=== PATIENT | female | born 1985 | race American Indian/Alaskan Native ===

== ENCOUNTER 2018-07-01 15:27 | Emergency (ER) | payer MEDICAID, SELFPAY ==
[2018-07-01 15:30] VITALS: BP 130/86; PULSE 80; RESP 16; TEMP 36.9; O2SAT 100; BMI 26.9
--- NOTE | 2018-07-01 15:53 | ED.HA ---
HPI - Headache General Chief Complaint: Headache Stated Complaint: rt ear / head pain Time Seen by Provider: 07/01/18 15:53 Source: patient and old records reviewed (marcia by hand from pcp.) Mode of arrival: ambulatory Limitations: no limitations History of Present Illness HPI Narrative: This is a 33-year-old female who comes to the emergency department with complaint of headache for the past 2 and half weeks. Patient states that sort of seemed gradual. She states she was a little bit L. It has been on the right side of her head cut just above her ear. She thought initially she might have an ear infection because she has some pain in the ear. She states also opening and closing her mouth also causes some pain. Patient states she has been taking ibuprofen which has not resolved. It is pretty much constant does not come and go nothing seems to make it worse or better. She has not had a history of migraines. She has had occasional headaches but nothing significant. She has not had any trauma. She does have a family history of glioblastoma in her father. Patient has not had any weakness, dizziness, vision changes, numbness or tingling or other neurologic changes. She has not had any sinus pressure, no recent nasal congestion. She does not have any pain in her neck. Patient's primary care was going to order an outpatient CT but because it would take too long they told her to come to the ER. Patient presents with an outpatient rx for Head CT. Related Data Home Medications Medication Instructions Recorded Confirmed Cinnamon 1 cap PO DAILY 07/01/18 07/01/18 Probiotic 1 cap PO DAILY 07/01/18 07/01/18 apple cider vinegar 1 cap PO DAILY 07/01/18 07/01/18 ibuprofen 600 mg PO PRN PRN 07/01/18 07/01/18 sertraline 200 mg PO DAILY 07/01/18 07/01/18 Previous Rx's Medication Instructions Recorded brktvnzjlz-ievzuhfynwovm-cbyy 1 cap PO Q4H PRN #10 cap 07/01/18 [Fioricet] Allergies Allergy/AdvReac Type Severity Reaction Status Date / Time No Known Drug Allergies Allergy Verified 07/01/18 15:30 Review of Systems Review of Systems ROS Unobtainable: All systems reviewed & are unremarkable except as noted in HPI and below Constitutional Denies chills, Denies fatigue, Denies fever(s), Reports headache(s), Denies lethargy and Denies weakness Eyes Denies blurry vision and Denies change in vision ENT Ears, Nose, Mouth, and Throat: Reports as per HPI, Reports otalgia (right ear), Denies facial pain, Reports headache(s), Denies hoarseness, Denies nasal congestion, Denies neck pain, Denies disequilibrium, Denies tinnitus, Denies sinus pain, Denies sinus pressure, Denies sore throat and Denies throat swelling Musculoskeletal Denies neck pain Neurologic Reports headache(s), Denies disequilibrium and Denies weakness Endocrine Denies fatigue Allergic/Immunologic Denies throat swelling PFSH Social History Smoking Status: Current every day smoker Family History Father No problems noted. Social History Smoking Status: Current every day smoker substance use type: former substance user Exam Narrative Exam Narrative: GEN: well nourished, well appearing female, alert and oriented x 3, patient appears to be in in mild distress. HEENT: Atraumatic, pupils are equal round reactive to light, extraocular movements are intact, nares are clear, TMs are clear with no fluid, there is no conjunctival pallor. Throat is clear without any exudates, erythema, tonsillar enlargement or uvular deviation, patient has some pain with opening and closing of her drop but no click or pain with palpation over the TMJ. Patient does not have any facial swelling, no cervical lymphadenopathy. HEART: Regular rate and rhythm without murmur, clicks, rubs. LUNGS:Lungs clear to auscultation, no wheezes, rales, crackles, chest moves symmetrically ABD:bowel sounds normal, soft, non-tender, no guarding, rebound, rigidity, no masses noted, no hepatosplenomegaly MSCL: Non-tender, no muscle atrophy, muscles strength 5/5 upper and lower extremities, full range of motion, normal gait NEURO:CN 2-12 intact, sensation normal. Initial Vital Signs Initial Vital Signs: Vital Signs Temperature 98.5 F 07/01/18 15:30 Pulse Rate 80 07/01/18 15:30 Respiratory Rate 16 07/01/18 15:30 Blood Pressure 130/86 07/01/18 15:30 Pulse Oximetry 100 07/01/18 15:30 Course Orders Ordered: ED Orders 07/01/18 16:04 CT head/brain wo/w con Stat 07/01/18 16:45 Basic Metabolic Panel Stat Complete Blood Count AUTO DIFF Stat Vital Signs - 8 hr 07/01/18 15:30 07/01/18 18:24 Temperature 98.5 F Pulse Rate 80 69 Respiratory Rate 16 15 Blood Pressure 130/86 Blood Pressure [Left Arm] 121/77 Pulse Oximetry 100 98 MDM - Headache Lab Data Attestation: I reviewed the patient's lab results. Result diagrams: 07/01/18 16:45 07/01/18 16:45 Lab Results 07/01/18 07/01/18 Range/Units 16:45 16:45 WBC 8.8 (4.5-11.0) X10^3/uL RBC 4.10 (4.0-5.2) X10^6/uL Hgb 12.8 (12.0-16.0) g/dL Hct 37.6 (36-46) % MCV 91.6 (80-100) fL MCH 31.2 (26-34) PG MCHC 34.0 (30-36) % RDW 12.2 (11.6-14.8) % Plt Count 255 (150-400) X10^3/uL Neut % (Auto) 61.7 (50-75) % Lymph % (Auto) 28.0 (25-40) % [place] % (Auto) 8.3 (3-14) % Eos % (Auto) 0.9 L (2-4) % Baso % (Auto) 1.1 (0-2) % Neut # (Auto) 5400 (5222-6435) /uL Lymph # (Auto) 2500 (3023-0554) /uL [place] # (Auto) 700 (0-900) /uL Eos # (Auto) 100 (0-450) /uL Baso # (Auto) 100 (0-100) /uL Sodium 138 (137-145) mmol/L Potassium 4.1 (3.4-5.1) mmol/L Chloride 104 (98-107) mmol/L Carbon Dioxide 26 (22-32) mmol/L BUN 11 (7-17) mg/dL Creatinine 0.70 (0.52-1.04) mg/dL Estimated GFR > 60.0 (>60) mL/min BUN/Creatinine Ratio 15.7 (6-22) Glucose 80 (70-100) mg/dL Calcium 9.5 (8.4-10.2) mg/dL Point of Care Testing Test Results Negative Imaging Data head CT with and without: Radiologist's impression: Carolina Ibrahim DO Find Patient Imaging Anette Colon 33 F 1985 ACTIVITY DATE EXAM STATUS AUTHOR 07/01/18 16:04 [place] [address] CT Scan Report Signed Patient: Ashely Colon#: [id number] : 1985Acct:[id number] Age/Sex: 33 / FDate of Service: 07/01/18 Loc: ED Accession Number: [id number] Procedure: CT head/brain wo/w con Ordering Provider: Carolina Ibrahim D.O. PROCEDURE: CT HEAD/BRAIN WO/W CON INDICATIONS: headache x 2-3 weeks, right side, sent by pcp TECHNIQUE: 4.5 mm thick angled axial sections acquired from the foramen magnum to the vertex before and after the administration of intravenous contrast, with coronal and sagittal reformats. For radiation dose reduction, the following was used: automated exposure control, adjustment of mA and/or kV according to patient size. COMPARISON: None. FINDINGS: Image quality: Excellent. CSF Spaces: Basal cisterns are patent. No extra-axial fluid collections. Ventricles are normal in size and shape. Brain: No midline shift. No intracranial bleeds or masses. No abnormal intracranial enhancement. Cedeno-white interface appears normal. Skull and face: Calvarium and visualized facial bones appear intact, without suspicious lesions. Sinuses: Visualized sinuses and mastoids are clear. IMPRESSION: Normal head CT with and without contrast. Dictated by: Alisa Dan M.D. on 07/01/2018 at 18:03 Approved by: Alisa Dan M.D. on 07/01/2018 at 18:05 [facility] Narrative Medical decision making narrative: Patient's primary care physician would like a head CT with and without contrast. She has a family history of glioblastoma, her symptoms are not strictly specific with any other cause so does seem appropriate and she does not have a history of migraines. Head CT is negative, lab work does not show any major changes. Urine is negative. Discussed with patient offered Fioricet to assist with headaches and she can continue NSAIDs as needed. She did have some discomfort with movement of her jaw although not at all times so we did discuss possibly TMJ as a cause as well. Discharge Plan Departure Patient Disposition: Home Clinical Impression: Headache Instructions: DI for Headache Activity Restrictions/Additional Instructions: Follow up with your primary care physician in the next week. Discussed the possibility of TMJ with your physician, they also discussed follow-up/referral for Neurology which may be appropriate. You may continue ibuprofen as needed for headache. You may take medication as prescribed for headache. Return to the ER for fevers greater than 100.4 F, new vision changes, sudden rapid worsening of her headaches, new weakness, numbness, difficulty with speech or movement, persistent vomiting, any chest pain, shortness of breath or other new or concerning symptoms. Prescriptions: New eljckzdfow-wmxtlorvommsa-manh [Fioricet] 50-300-40 mg capsule 1 cap PO Q4H PRN (Reason: pain) Qty: 10 RF: 0 No Action sertraline 100 mg Tablet 200 mg PO DAILY RF: 0 ibuprofen 600 mg Tablet 600 mg PO PRN PRN (Reason: pain) RF: 0 Cinnamon 1 cap PO DAILY RF: 0 Probiotic 1 cap PO DAILY RF: 0 apple cider vinegar 1 cap PO DAILY RF: 0 Referrals: Dvae Frederick MD [Primary Care Provider] -
--- NOTE | 2018-07-01 16:04 | DI.CT.S_ITS ---
PROCEDURE: CT HEAD/BRAIN WO/W CON INDICATIONS: headache x 2-3 weeks, right side, sent by pcp TECHNIQUE: 4.5 mm thick angled axial sections acquired from the foramen magnum to the vertex before and after the administration of intravenous contrast, with coronal and sagittal reformats. For radiation dose reduction, the following was used: automated exposure control, adjustment of mA and/or kV according to patient size. COMPARISON: None. FINDINGS: Image quality: Excellent. CSF Spaces: Basal cisterns are patent. No extra-axial fluid collections. Ventricles are normal in size and shape. Brain: No midline shift. No intracranial bleeds or masses. No abnormal intracranial enhancement. Cedeno-white interface appears normal. Skull and face: Calvarium and visualized facial bones appear intact, without suspicious lesions. Sinuses: Visualized sinuses and mastoids are clear. IMPRESSION: Normal head CT with and without contrast. Dictated by: Alisa Dan M.D. on 07/01/2018 at 18:03 Approved by: Alisa Dan M.D. on 07/01/2018 at 18:05
--- NOTE | 2018-07-01 16:21 | ED_ITS ---
HPI - Headache General Chief Complaint: Headache Stated Complaint: rt ear / head pain Time Seen by Provider: 07/01/18 15:53 Source: patient and old records reviewed (marcia by hand from pcp.) Mode of arrival: ambulatory Limitations: no limitations History of Present Illness HPI Narrative: This is a 33-year-old female who comes to the emergency department with complaint of headache for the past 2 and half weeks. Patient states that sort of seemed gradual. She states she was a little bit L. It has been on the right side of her head cut just above her ear. She thought initially she might have an ear infection because she has some pain in the ear. She states also opening and closing her mouth also causes some pain. Patient states she has been taking ibuprofen which has not resolved. It is pretty much constant does not come and go nothing seems to make it worse or better. She has not had a history of migraines. She has had occasional headaches but nothing significant. She has not had any trauma. She does have a family history of glioblastoma in her father. Patient has not had any weakness, dizziness, vision changes, numbness or tingling or other neurologic changes. She has not had any sinus pressure, no recent nasal congestion. She does not have any pain in her neck. Patient's primary care was going to order an outpatient CT but because it would take too long they told her to come to the ER. Patient presents with an outpatient rx for Head CT. Related Data Home Medications Medication Instructions Recorded Confirmed Cinnamon 1 cap PO DAILY 07/01/18 07/01/18 Probiotic 1 cap PO DAILY 07/01/18 07/01/18 apple cider vinegar 1 cap PO DAILY 07/01/18 07/01/18 ibuprofen 600 mg PO PRN PRN 07/01/18 07/01/18 sertraline 200 mg PO DAILY 07/01/18 07/01/18 Previous Rx's Medication Instructions Recorded qkdmbjgjws-hkdcatttpjprx-yila 1 cap PO Q4H PRN #10 cap 07/01/18 [Fioricet] Allergies Allergy/AdvReac Type Severity Reaction Status Date / Time No Known Drug Allergies Allergy Verified 07/01/18 15:30 Review of Systems Review of Systems ROS Unobtainable: All systems reviewed & are unremarkable except as noted in HPI and below Constitutional Denies chills, Denies fatigue, Denies fever(s), Reports headache(s), Denies lethargy and Denies weakness Eyes Denies blurry vision and Denies change in vision ENT Ears, Nose, Mouth, and Throat: Reports as per HPI, Reports otalgia (right ear), Denies facial pain, Reports headache(s), Denies hoarseness, Denies nasal congestion, Denies neck pain, Denies disequilibrium, Denies tinnitus, Denies sinus pain, Denies sinus pressure, Denies sore throat and Denies throat swelling Musculoskeletal Denies neck pain Neurologic Reports headache(s), Denies disequilibrium and Denies weakness Endocrine Denies fatigue Allergic/Immunologic Denies throat swelling PFSH Social History Smoking Status: Current every day smoker Family History Father No problems noted. Social History Smoking Status: Current every day smoker substance use type: former substance user Exam Narrative Exam Narrative: GEN: well nourished, well appearing female, alert and oriented x 3, patient appears to be in in mild distress. HEENT: Atraumatic, pupils are equal round reactive to light, extraocular movements are intact, nares are clear, TMs are clear with no fluid, there is no conjunctival pallor. Throat is clear without any exudates, erythema, tonsillar enlargement or uvular deviation, patient has some pain with opening and closing of her drop but no click or pain with palpation over the TMJ. Patient does not have any facial swelling, no cervical lymphadenopathy. HEART: Regular rate and rhythm without murmur, clicks, rubs. LUNGS:Lungs clear to auscultation, no wheezes, rales, crackles, chest moves symmetrically ABD:bowel sounds normal, soft, non-tender, no guarding, rebound, rigidity, no masses noted, no hepatosplenomegaly MSCL: Non-tender, no muscle atrophy, muscles strength 5/5 upper and lower extremities, full range of motion, normal gait NEURO:CN 2-12 intact, sensation normal. Initial Vital Signs Initial Vital Signs: Vital Signs Temperature 98.5 F 07/01/18 15:30 Pulse Rate 80 07/01/18 15:30 Respiratory Rate 16 07/01/18 15:30 Blood Pressure 130/86 07/01/18 15:30 Pulse Oximetry 100 07/01/18 15:30 Course Orders Ordered: ED Orders 07/01/18 16:04 CT head/brain wo/w con Stat 07/01/18 16:45 Basic Metabolic Panel Stat Complete Blood Count AUTO DIFF Stat Vital Signs - 8 hr 07/01/18 15:30 07/01/18 18:24 Temperature 98.5 F Pulse Rate 80 69 Respiratory Rate 16 15 Blood Pressure 130/86 Blood Pressure [Left Arm] 121/77 Pulse Oximetry 100 98 MDM - Headache Lab Data Attestation: I reviewed the patient's lab results. Result diagrams: 07/01/18 16:45 07/01/18 16:45 Lab Results 07/01/18 07/01/18 Range/Units 16:45 16:45 WBC 8.8 (4.5-11.0) X10^3/uL RBC 4.10 (4.0-5.2) X10^6/uL Hgb 12.8 (12.0-16.0) g/dL Hct 37.6 (36-46) % MCV 91.6 (80-100) fL MCH 31.2 (26-34) PG MCHC 34.0 (30-36) % RDW 12.2 (11.6-14.8) % Plt Count 255 (150-400) X10^3/uL Neut % (Auto) 61.7 (50-75) % Lymph % (Auto) 28.0 (25-40) % [place] % (Auto) 8.3 (3-14) % Eos % (Auto) 0.9 L (2-4) % Baso % (Auto) 1.1 (0-2) % Neut # (Auto) 5400 (0385-2179) /uL Lymph # (Auto) 2500 (3553-7738) /uL [place] # (Auto) 700 (0-900) /uL Eos # (Auto) 100 (0-450) /uL Baso # (Auto) 100 (0-100) /uL Sodium 138 (137-145) mmol/L Potassium 4.1 (3.4-5.1) mmol/L Chloride 104 (98-107) mmol/L Carbon Dioxide 26 (22-32) mmol/L BUN 11 (7-17) mg/dL Creatinine 0.70 (0.52-1.04) mg/dL Estimated GFR > 60.0 (>60) mL/min BUN/Creatinine Ratio 15.7 (6-22) Glucose 80 (70-100) mg/dL Calcium 9.5 (8.4-10.2) mg/dL Point of Care Testing Test Results Negative Imaging Data head CT with and without: Radiologist's impression: Carolina Ibrahim DO Find Patient Imaging Anette Colon 33 F 1985 ACTIVITY DATE EXAM STATUS AUTHOR 07/01/18 16:04 [place] [address] CT Scan Report Signed Patient: Ashely Colon#: [id number] : 1985Acct:[id number] Age/Sex: 33 / FDate of Service: 07/01/18 Loc: ED Accession Number: [id number] Procedure: CT head/brain wo/w con Ordering Provider: Carolina Ibrahim D.O. PROCEDURE: CT HEAD/BRAIN WO/W CON INDICATIONS: headache x 2-3 weeks, right side, sent by pcp TECHNIQUE: 4.5 mm thick angled axial sections acquired from the foramen magnum to the vertex before and after the administration of intravenous contrast, with coronal and sagittal reformats. For radiation dose reduction, the following was used: automated exposure control, adjustment of mA and/or kV according to patient size. COMPARISON: None. FINDINGS: Image quality: Excellent. CSF Spaces: Basal cisterns are patent. No extra-axial fluid collections. Ventricles are normal in size and shape. Brain: No midline shift. No intracranial bleeds or masses. No abnormal intracranial enhancement. Cedeno-white interface appears normal. Skull and face: Calvarium and visualized facial bones appear intact, without suspicious lesions. Sinuses: Visualized sinuses and mastoids are clear. IMPRESSION: Normal head CT with and without contrast. Dictated by: Alisa Dan M.D. on 07/01/2018 at 18:03 Approved by: Alisa Dan M.D. on 07/01/2018 at 18:05 [facility] Narrative Medical decision making narrative: Patient's primary care physician would like a head CT with and without contrast. She has a family history of glioblastoma, her symptoms are not strictly specific with any other cause so does seem appropriate and she does not have a history of migraines. Head CT is negative, lab work does not show any major changes. Urine is negative. Discussed with patient offered Fioricet to assist with headaches and she can continue NSAIDs as needed. She did have some discomfort with movement of her jaw although not at all times so we did discuss possibly TMJ as a cause as well. Discharge Plan Departure Patient Disposition: Home Clinical Impression: Headache Instructions: DI for Headache Activity Restrictions/Additional Instructions: Follow up with your primary care physician in the next week. Discussed the possibility of TMJ with your physician, they also discussed follow-up/referral for Neurology which may be appropriate. You may continue ibuprofen as needed for headache. You may take medication as prescribed for headache. Return to the ER for fevers greater than 100.4 F, new vision changes, sudden rapid worsening of her headaches, new weakness, numbness, difficulty with speech or movement, persistent vomiting, any chest pain, shortness of breath or other new or concerning symptoms. Prescriptions: New npsjbokoso-zgtjmlgflfpdj-rhvv [Fioricet] 50-300-40 mg capsule 1 cap PO Q4H PRN (Reason: pain) Qty: 10 RF: 0 No Action sertraline 100 mg Tablet 200 mg PO DAILY RF: 0 ibuprofen 600 mg Tablet 600 mg PO PRN PRN (Reason: pain) RF: 0 Cinnamon 1 cap PO DAILY RF: 0 Probiotic 1 cap PO DAILY RF: 0 apple cider vinegar 1 cap PO DAILY RF: 0 Referrals: Dave Frederick MD [Primary Care Provider] -
[2018-07-01 16:53] LABS: Add Manual Diff / Slide Review NO; Basophils Absolute Auto 100 /uL (0-100); Basophils Percent Auto 1.1 % (0-2); Eosinophils Absolute Auto 100 /uL (0-450); Eosinophils Percent Auto 0.9 % (2-4); Hematocrit 37.6 % (36-46); Hemoglobin 12.8 g/dL (12.0-16.0); Lymphocytes Absolute Auto 2500 /uL (1100-4500); Mean Corpuscular Hemoglobin 31.2 PG (26-34); Mean Corpuscular Volume 91.6 fL (80-100); Monocytes Absolute Auto 700 /uL (0-900); Monocytes Percent Auto 8.3 % (3-14); Neutrophils Absolute Auto 5400 /uL (1500-7000); Neutrophils Percent Auto 61.7 % (50-75); Platelet Count 255 X10^3/uL (150-400); Red Cell Distribution Width 12.2 % (11.6-14.8); White Blood Cell Count 8.8 X10^3/uL (4.5-11.0)
[2018-07-01 17:04] LABS: BUN Creatinine Ratio 15.7 (6-22); Blood Urea Nitrogen 11 mg/dL (7-17); Calcium 9.5 mg/dL (8.4-10.2); Carbon Dioxide 26 mmol/L (22-32); Chloride 104 mmol/L (98-107); Estimated Glomerular Filt Rate > 60.0 mL/min (>60); Glucose 80 mg/dL (70-100); HEMOLYSIS 31 (0-50); Potassium 4.1 mmol/L (3.4-5.1); Sodium 138 mmol/L (137-145)
[2018-07-01 18:24] VITALS: BP 121/77; PULSE 69; RESP 15; O2SAT 98
== END 2018-07-01 19:04 | disposition home or self-care (01) ==
PROVIDERS: Emergency Provider Emergency Medicine; Family Provider Family Medicine; PCP Family Medicine
DX: R51 Headache (principal)
CPT/HCPCS: 36591; 70470; 80048; 81025; 85025; 99282; 99285; Q9967